=== PATIENT | female | born 1985 | race Two or more races ===

== ENCOUNTER 2018-08-22 23:48 | Inpatient (IN) | payer OTHER ==
[~2018-08-22] VITALS: Ht 152.4 cm; Wt 79.4 kg
[~2018-08-22 23:48] MED LIST: INTESTINEX680 MG PO
--- NOTE | 2018-08-23 00:01 | NUR ---
SE RECIBE PTE ALERTA Y ORIENTADA POR DREAD LA CUAL REFIERE PRESENTAR DIARREAS DESDE NITO Y VOMITOS X6 EN EL SONAM DE HOY.
--- NOTE | 2018-08-23 02:54 | NUR ---
PACIENTE ALERTA Y ORIENTADA X3, CON BUEN PATRON RESPIRATORIO Y SIGNOS VITALES ESTABLES, REFIERE LINO DOLOR EN EL ABDOMEN Y LA ESALDA. SE ABRE VENA CON ANGIO #20 PATENTE Y GIORGIO DE EDEMA, SE OLEG MUESTRAS BAJO MEDIDAS ASEPTICAS Y SE ADMINISTRAN MEDICAMENTOS MACI ORDENADOS. SE GUILLE TRANQUILA EN CAMA, BARANDAS ELEVADAS Y FRENOS COLOCADOS.
[2018-08-24] MEDS ORDERED: CEFUROXIME500 MG PO (10:05)
[2018-08-24] MEDS ORDERED: NUVARING VAGIN1 EACH (10:06)
[2018-08-24] MEDS ORDERED: ORPHENADRINE C100 MG PO (10:07)
[2018-08-24] MEDS ORDERED: DICLOFENAC SODI75 MG PO (10:07)
[2018-08-24] MEDS ORDERED: CLONAZEPAM2 MG PO (10:08)
[2018-08-25] MEDS ORDERED: RANITIDINE HCL150 M1 PO (10:48)
[2018-08-25] MEDS ORDERED: PROTONIX40 MG PO (10:48)
[2018-08-25] MEDS ORDERED: PROBIOTIC1 EACH PO (10:48)
== END 2018-08-25 13:19 | disposition home or self-care (01) | DRG 392 ==
LOC: ER 23:48 → MEDI 08-23 10:52 → SEC-K 08-23 10:52 → MEDI 08-23 13:29
PROVIDERS: ADMIT Internal Medicine
DX: K52.89 Other specified noninfective gastroenteritis and colitis (principal); N39.0 Urinary tract infection, site not specified; E86.0 Dehydration; E87.8 Other disorders of electrolyte and fluid balance, not elsewhere classified; Z88.1 Allergy status to other antibiotic agents; M62.830 Muscle spasm of back

== ENCOUNTER 2018-09-01 19:57 | Emergency (ER) | payer OTHER ==
[~2018-09-01] VITALS: Ht 152.4 cm; Wt 76.7 kg
[~2018-09-01 19:57] MED LIST changes: +CEFUROXIME500 MG PO; +CLONAZEPAM2 MG PO; +DICLOFENAC SODI75 MG PO; +NUVARING VAGIN1 EACH; +ORPHENADRINE C100 MG PO; +PROBIOTIC1 EACH PO; +PROTONIX40 MG PO; +RANITIDINE HCL150 M1 PO
[2018-09-02] MEDS ORDERED: PEPCID AC20 MG PO (03:49)
[2018-09-02] MEDS ORDERED: LOPERAMIDE2 M1 PO (03:49)
[2018-09-02] MEDS ORDERED: LEVSIN/SL0.125 MG SL (03:49)
[2018-09-02] MEDS ORDERED: INTESTINEX680 M1 PO (03:49)
[2018-09-02] MEDS ORDERED: ONDANSETRON ODT4 MG SL (03:49)
== END 2018-09-02 04:02 | disposition home or self-care (01) ==
LOC: ER 19:57
DX: K52.9 Noninfective gastroenteritis and colitis, unspecified (principal)

== ENCOUNTER 2025-03-18 09:00 | Outpatient (CLI) | payer OTHER ==
[~2025-03-18 09:00] MED LIST changes: +INTESTINEX680 M1 PO; +LEVSIN/SL0.125 MG SL; +LOPERAMIDE2 M1 PO; +ONDANSETRON ODT4 MG SL; +PEPCID AC20 MG PO
== END 2025-03-18 09:10 | disposition home or self-care (01) ==
LOC: PPH VACUNA 09:00
PROVIDERS: ATTEND Emergency Medicine Pediatric Emergency Medicine
DX: Z23 Encounter for immunization (principal)